=== PATIENT | male | born 1955 | race Caucasian/White ===

== ENCOUNTER → 2019-01-01 | Outpatient (CLI) | payer OTHER ==
[~2019-01-01] MED LIST: REGADENOSON 0.4 MG/5 ML DISP.SYRIN. IV ONE
--- NOTE | 2019-01-01 14:57 | PCVCIMAG ---
APPROVED REPORT Imaging Protocol: Rest Tc-99m/Stress Tc-99m 1 day Study performed: 01/01/2019 09:39:00 Indication: Dyspnea Patient Location: Out-Patient Stress Nurse: Litzy Cuba RN AL Tech:Shantal OnofreMICKIE howeMT Ht: 5 ft 6 in Wt: 200 lbs BSA: 2.00 m2 HR: 63 bpm BP: 114/74 mmHg BMI: 32.2 Rhythm: Normal Sinus Rhythm Medical History Medical History: Hyperlipidemia, HTN, COPD, Former Smoker Medications: 02 5 Lt, Albuterol, Buspar, Protonix, Pravastatin, Xarelto Allergies: No known drug allergies Cardiac Risk Factors: Age Pretest Chest Pain Characteristics: No chest pain Exercise History: Sedentary Physical Disabilities: Lung status Resting Data Rest SPECT myocardial perfusion imaging was performed in supine position 45 minutes following the intravenous injection of 10.5 mCi of Tc-99m Sestamibi. Time of rest injection: 0945 Administration Route: IV Administration Site: Right AC Pharmacologic Stress Pharmacologic stress test was performed by injecting Regadenoson 0.4 mg IV push over 10-15 seconds immediately followed by the intravenous injection of 32.9 mCi of Tc-99m Sestamibi. Time of stress injection: 1100 Date: 01/01/2019 Administration Route: IV Administration Site: Right AC Gated Stress SPECT was performed 45 minutes after stress injection. The images were gated to evaluate regional wall motion and calculate left ventricular ejection fraction. Stress Test Details Stress Test: Pharmacologic stress testing performed using 0.4 mg of regadenoson per 5 mL given IV over 10 seconds. Reason for pharmacologic stress test: COPD. HRMax Heart Rate (APMHR): 159 bpm Resting HR: 63 bpmTarget HR (85% APMHR): 135 bpm Max HR Achieved: 83 bpm % of APMHR: 52 Recovery HR: 68 bpm BP Resting BP: 114/74 mmHg Max BP: 101/62 mmHg Recovery BP: 98/62 mmHg ECG Resting ECG: Normal Sinus Rhythm Stress ECG: Sinus Rhythm Arrhythmia: VPC's Recovery ECG: Sinus Rhythm Clinical Reason for Termination: Completed protocol Stress Symptoms: Dyspnea Symptoms resolved during recovery. Stress ECG Conclusion ECG: Non-ischemic Study Quality Study: Good Artifact: Mild Diaphragmatic artifact Study Data Post stress, the left ventricular ejection was 82%.. SSS: 3 SRS: 0 SDS: 3 TID = 0.84. Perfusion Medium sized area of moderate reversible ischemia involving the basal inferolateral left ventricle consistent with a circumflex distribution. Wall Motion Normal left ventricular size and function with no regional wall motion abnormalities. Nuclear Conclusion Medium sized area of moderate reversible ischemia involving the basal inferolateral left ventricle consistent with a circumflex distribution. Normal left ventricular size and function with no regional wall motion abnormalities. Post stress, the left ventricular ejection was 82%. No prior study available for comparison. Interpreted by: Abdi Guido MD Electronically Approved: 01/01/2019 13:02:01 <Conclusion> ECG: Non-ischemic
== END | disposition home or self-care (01) ==
LOC: PCVCIMAG 09:21
PROVIDERS: ATTEND Internal Medicine Cardiovascular Disease
DX: R06.00 Dyspnea, unspecified (principal); I10 Essential (primary) hypertension; J44.9 Chronic obstructive pulmonary disease, unspecified; E78.5 Hyperlipidemia, unspecified; Z87.891 Personal history of nicotine dependence
CPT/HCPCS: 78452; 93017; A9500; J2785